=== PATIENT | female | born 1995 | race Two or more races ===

== ENCOUNTER 2020-10-16 20:45 | Emergency (ER) | payer SELFPAY ==
[~2020-10-16] VITALS: Ht 157.5 cm; Wt 66.0 kg
[2020-10-16 20:52] VITALS: BP 113/66
--- NOTE | 2020-10-16 21:19 | NUR ---
PT SITTING IN [facility]. INITIAL CONTACT WITH PT: ASKED TO REMOVE MASK SO ORAL TEMP COULD BE OBTAINED, PT COMPLIANT, "OH HOLD ON I'M FLOSSING" PT PROCEEDED TO REMOVE HAIR FROM MOUTH. PT IS NOT RESPONDING TO INTERNAL STIMULI HOWEVER IS DISTRACTED WHEN THIS RN IS CONVERSING. THIS RN INQUIRED ABOUT HEIGHT AND WEIGHT OF PT, PT STATES "5'2" SOMETIMES 5'5 AND 130 OVER 180."
[2020-10-16 21:49] LABS: BASOPHILS % (AUTO) 1 % (0-1); EOSINOPHILS % (AUTO) 1 % (1-7); LYMPHOCYTES % (AUTO) 36 % (22-44); MEAN CORPUSCULAR HEMOGLOBIN 17.8 pg (27.0-34.8); MONOCYTES % (AUTO) 8 % (2-9); NEUTROPHILS % (AUTO) 55 % (42-75); PLATELET COUNT 285 x10^3/uL (130-400); RED BLOOD COUNT 4.61 x10^6/uL (3.82-5.3); RED CELL DISTRIBUTION WIDTH 23.1 % (9.6-15.2)
--- NOTE | 2020-10-16 22:03 | NUR ---
RECEIVED REPORT FROM MAGDALENA. PT SITTING ON [facility] IN VIEW OF CHARGE & TP RN'S, RESPONDS APPROP TO STAFF, CLIF WESLEY SAMPLE SENT TO LAB, NO NEEDS AT THIS TIME, PT REMAINS IN [facility]MENT.
[2020-10-16 22:09] LABS: ANION GAP 7 mmol/L (5-15); CHLORIDE 112 mmol/L (98-107)
[2020-10-16 22:10] LABS: CREATININE 0.76 mg/dL (0.55-1.02); SALICYLATE LEVEL < 1.7 mg/dL (2.8-20.0)
[2020-10-16 22:13] LABS: ANISOCYTOSIS 1+; HYPOCHROMIA 1+; MD MORPH REVIEW ONLY; MEAN CORPUSCULAR HGB CONC 29.3 g/dL (32.4-35.8); MICROCYTOSIS 1+
[2020-10-16 22:14] LABS: <PLATELET ESTIMATE> ADEQUATE; <PLT MORPHOLOGY> NORMAL PLT MORPH; OVALOCYTES 1+; TEAR DROPS 1+
[2020-10-16 22:26] LABS: AMPHETAMINE SCREEN, URINE Negative (Negative); BARBITURATE SCREEN, URINE Negative (Negative); BENZODIAZEPINE SCREEN, URINE Negative (Negative)
[2020-10-16 22:27] LABS: CANNABINOID SCREEN, URINE Negative (Negative); COCAINE SCREEN, URINE Negative (Negative); METHADONE SCREEN, URINE Negative (Negative); OPIATE SCREEN, URINE Negative (Negative)
--- NOTE | 2020-10-16 22:48 | NUR ---
PT MOVED TO RM02, REPORT GIVEN TO ANA MARIA.
--- NOTE | 2020-10-16 22:49 | NUR ---
PT STATES SHE IS HERE BECUASE SHE IS "NOT RESPONDING WELL TO PEOPLE." SHE ALSO STATES THAT SHE IS TIRED OF LIVING WITH HER MOTHER, WHO SHE HAS NOT BEEN GETTING ALONG WITH LATELY. PT STATES HER DOCTOR RECENTLY CHANGED HER PSYCH MEDS FROM [facility] TO 2 OTHER PSYCH MEDS THAT SHE CANNOT REMEMBER WHAT THEY ARE CALLED. PT HAS BEEN OFF OF HER MEDS FOR APPROX 1 WEEK. PT CALM AND COOPERATIVE, DENYING ANY SI/HI ALSO DENYING ANY HX OF SI/SA.
--- NOTE | 2020-10-16 22:51 | NUR ---
ALL PT BELONGING REMOVED AND PLACED INTO 2 PT BELONGINGS BAGS. PT IN A SECURE ROOM AND PROVIDED GOWN, SOCKS AND 2 BLANKETS. PT CALM AND COOPERATIVE.
--- NOTE | 2020-10-16 23:34 | NUR ---
I TALKED TO LIZZIE AT [facility] AND SHE SAID PT HAS ALREADY BEEN ACCEPTED THERE. THEY WANTED HER TO BE MEDICALLY CLEARED AND THE LEGAL HOLD CERTIFIED BY US, WHICH HAS ALL BEEN COMPLETED. DR PATEL WILL BE OVER SEEING HER CARE AT [facility]. PT WILL BE TRANSPORTED VIA [facility] BACK TO [facility].
== END 2020-10-17 01:23 ==
LOC: ED 22:51
DX: F20.1 Disorganized schizophrenia (principal); D50.9 Iron deficiency anemia, unspecified; R06.89 Other abnormalities of breathing; Z91.14 Patient's other noncompliance with medication regimen
CPT/HCPCS: 36415; 71045; 80048; 80307; 82040; 84703; 85025; 99285